=== PATIENT | male | born 1990 | race Hispanic/Latino ===

== ENCOUNTER 2024-07-12 10:37 | Emergency (ER) | payer OTHER ==
[2024-07-12 11:10] LABS: Absolute Lymphocytes (CBC) 1.3 K/uL (0.7-4.9); Absolute Monocytes 0.2 K/uL (0.1-1.3); Basophils % 0.8 % (0-1.3); Eosinophils % 0.8 % (0-4.4); Hematocrit 38.3 % (39.6-49.0); Hemoglobin 13.3 g/dL (13.6-17.9); Lymphocytes % 22.6 % (15.3-44.8); MCH 31.3 pg (27.0-35.0); MCHC 34.8 g/dL (32.0-36.0); Monocytes % 4.1 % (3.3-12.3); Neutrophils % 71.7 % (41.7-73.7); Nucleated Red Blood Cells % 0.1 % (0-0); Platelets 154 thou/uL (152-406); RBC Red Blood Cell Count 4.26 M/uL (4.33-5.43); Red Cell Distribution Width 13.7 % (12.1-15.2)
[2024-07-12 11:13] LABS: PT Prothrombin Time 11.1 SECONDS (10-13.0); PTT, Activated Partial Thromb 33.2 SECONDS (27.2-37.4); Protime INR 0.97
[2024-07-12 11:23] LABS: ALT/SGPT 30 U/L (16-61); AST/SGOT 17 U/L (15-37); Albumin 3.6 g/dL (3.4-5.0); Albumin/Globulin Ratio 1.2 (1.1-1.8); Alkaline Phosphatase 58 U/L (45-117); BUN Blood Urea Nitrogen 18 mg/dL (7-18); Bicarbonate 26 mEq/L (21-32); Bilirubin Direct < 0.2 mg/dL (0-0.2); Bilirubin Indirect, Calculated 0.3 mg/dL (0.2-0.8); Bilirubin Total 0.5 mg/dL (0.2-1.0); Glomerular Filtration Rate 116 ml/min (=/>90); Glucose Level 97 mg/dL (74-106); Protein, Total 6.6 g/dL (6.4-8.2); Sodium Level 140 mEq/L (136-145)
[2024-07-12 11:45] LABS: Barbiturates NEGATIVE (NEGATIVE); Benzodiazepines NEGATIVE (NEGATIVE); Cocaine NEGATIVE (NEGATIVE); METHAMPHETAM NEGATIVE (NEGATIVE); Methadone NEGATIVE (NEGATIVE); Opiates NEGATIVE (NEGATIVE); Phencyclidine NEGATIVE (NEGATIVE); THC Cannibis NEGATIVE (NEGATIVE)
--- NOTE | 2024-07-12 12:20 | EDPHYS ---
Physician Documentation [facility] Name: Jose Travis Jr Age: 34 yrs Sex: Male : 1990 Arrival Date: 07/12/2024 Time: 10:37 Bed 2 Private MD: ED Physician Rodolfo Boyer HPI: 07/12 11:20 This 34 yrs old Male presents to ER via EMS with complaints of Drug Abuse. ms3 11:20 34-year-old male with no past medical history presents to the emergency department via [address] [facility] for unknown substance ingestion. Patient had 18-gauge IV placed by the [facility] and 500 mL normal saline bolus was administered. EMS notes patient to be in sinus rhythm with blood glucose level of 84. 2 mg of Narcan was administered without response. Patient states he was talking to his cellmate when something flew into his mouth causing him to have loss of consciousness. He denies pain. He states he is drowsy.. Historical: - Allergies: 10:44 No Known Allergies; db - PMHx: 10:44 None; db - Immunization history:: Adult Immunizations unknown. - Infectious Disease History:: Denies. - Social history:: Smoking status: unknown. ROS: 11:20 Cardiovascular: Negative for chest pain, and palpitations. Respiratory: Negative for ms3 shortness of breath, cough, wheezing, and pleuritic chest pain, Abdomen/GI: Negative for abdominal pain, nausea, vomiting, diarrhea, and constipation, MS/Extremity: Negative for injury and deformity, Skin: Negative for injury, rash, and discoloration, 11:20 Constitutional: Positive for fatigue, Exam: 11:20 Constitutional: This is a well developed, well nourished patient who is awake, alert, ms3 and in no acute distress. Cardiovascular: Regular rate and rhythm with a normal S1 and S2. No gallops, murmurs, or rubs. Normal PMI, no JVD. No pulse deficits. Respiratory: Lungs have equal breath sounds bilaterally, clear to auscultation and percussion. No rales, rhonchi or wheezes noted. No increased work of breathing, no retractions or nasal flaring. Abdomen/GI: Soft, non-tender, with normal bowel sounds. No distension or tympany. No guarding or rebound. No evidence of tenderness throughout. Skin: Warm, dry with normal turgor. Normal color with no rashes, no lesions, and no evidence of cellulitis. MS/ Extremity: Pulses equal, no cyanosis. Neurovascular intact. Full, normal range of motion. 11:20 Neuro: Orientation: is normal, to person, place, time \T\ situation. Mentation: is ms3 normal, Memory: is normal, Cranial nerves: CN I not tested, CN II- XII are normal as tested, Motor: is normal, Sensation: is normal, no obvious gross deficits, 11:23 ECG was reviewed by the Attending Physician. ms3 Vital Signs: 10:33 BP 120 / 80; Pulse 66; Resp 16; Temp 98.1(O); Pulse Ox 100% ; Weight 68.95 kg; db 11:00 BP 118 / 80; Pulse 66; Resp 16; Pulse Ox 100% on R/A; db 11:30 BP 139 / 91; Pulse 69; Resp 16; Pulse Ox 100% ; db 12:11 BP 119 / 80; Pulse 70; Resp 18 S; Pulse Ox 99% on R/A; kc6 Hamilton Coma Score: 10:33 Eye Response: to pain(2). Motor Response: obeys commands(6). Verbal Response: db confused(4). Total: 12. 10:53 Eye Response: spontaneous(4). Motor Response: obeys commands(6). Verbal Response: db oriented(5). Total: 15. MDM: 10:39 Medical Screening Exam initiated ms3 11:20 Differential diagnosis: Drug ingestion versus malingering versus intracranial ms3 arrhythmia versus electrolyte abnormality. 12:20 Data reviewed: vital signs, nurses notes, lab test result(s), EKG, and as a result, I ms3 will discharge patient. Independent interpretation of the following test(s) in the Emergency Department EKG: See my EKG interpretation above. Historians other than the Patient: EMS: Terry Silva. Counseling: I had a detailed discussion with the patient and/or guardian regarding the historical points, exam findings, and any diagnostic results supporting the discharge/admit diagnosis, lab results, the need for outpatient follow up, to return to the emergency department if symptoms worsen or persist or if there are any questions or concerns that arise at home. Special discussion: I discussed with the patient/guardian in detail that at this point there is no indication for admission to the hospital. It is understood, however, that if the symptoms persist or worsen the patient needs to return immediately for re-evaluation. ED course: Labs reassuring; however, do reveal a mild anemia. Patient's EKG with sinus bradycardia. Patient is currently alert and oriented x 4, in no apparent distress, nontoxic-appearing, speaking full sentences, neurologically intact. [facility] to [facility]. Follow-up with pen[facility]entiary physician in 2 to 3 days. All questions were answered. Return precautions discussed include worsening symptoms, or any other concerns.. 07/12 10:39 Order name: Acetaminophen; Complete Time: 12:17 ms3 07/12 10:39 Order name: BMP; Complete Time: 12: ms3 07/12 10:39 Order name: CBC with Diff; Complete Time: 12:17 ms3 07/12 10:39 Order name: Ethanol; Complete Time: 12:17 ms3 07/12 10:39 Order name: Hepatic Function; Complete Time: 12:17 ms3 07/12 10:39 Order name: Protime (+inr); Complete Time: 12:17 ms3 07/12 10:39 Order name: Ptt, Activated; Complete Time: 12:17 ms3 07/12 10:39 Order name: Salicylate; Complete Time: 12:17 ms3 07/12 10:39 Order name: Urine Drug Screen; Complete Time: 12:17 ms3 07/12 10:39 Order name: EKG - Nurse/Tech; Complete Time: 11:04 ms3 07/12 10:39 Order name: IV Saline Lock; Complete Time: 11: ms3 07/12 10:39 Order name: Labs collected and sent; Complete Time: 11: ms3 07/12 10:39 Order name: O2 Per Protocol; Complete Time: 11: ms3 07/12 10:39 Order name: O2 Sat Monitoring; Complete Time: 11: ms3 07/12 10:39 Order name: Suicide Screening (Cade); Complete Time: 11:04 ms3 EC:23 Rate is 57 beats/min. Rhythm is regular. QRS [place] is Normal. [place] interval is normal. QRS ms3 interval is normal. Clinical impression: Sinus bradycardia. Interpreted by me. Reviewed by me. Administered Medications: No medications were administered Disposition Summary: 07/12/24 12:19 Discharge Ordered Notes: Location: Home ms3 Condition: Stable ms3 Diagnosis - Altered mental status, unspecified - resolved ms3 - Anemia, unspecified ms3 Followup: ms3 - With: Private Physician - When: 2 - 3 days - Reason: Recheck today's complaints Discharge Instructions: - Discharge Summary Sheet ms3 - Anemia ms3 - Accidental Drug Poisoning, Adult ms3 Forms: - Medication Reconciliation Form ms3 - Antibiotic Education ms3 - Prescription Opioid Use ms3 - Patient Portal Instructions ms3 - Leadership Thank You Letter ms3 Signatures: Dispatcher [employer] EDMS Rodolfo Boyer DO DO ms3 Carol Magana RN RN db Corrections: (The following items were deleted from the chart) 10:40 10:40 ACETAMINOPHEN+C.LAB.BRZ ordered. EDMS EDMS 10:40 10:40 BASIC METABOLIC PANEL+C.LAB.BRZ ordered. EDMS EDMS 10:40 10:40 CBC+H.LAB.BRZ ordered. EDMS EDMS 10:40 10:40 ETHANOL+C.LAB.BRZ ordered. EDMS EDMS 10:40 10:40 HEPATIC FUNCTION+C.LAB.BRZ ordered. EDMS EDMS 10:40 10:40 PROTIME (+INR)+COAG.LAB.BRZ ordered. EDMS EDMS 10:40 10:40 PTT, ACTIVATED+COAG.LAB.BRZ ordered. EDMS EDMS 10:40 10:40 SALICYLATE+C.LAB.BRZ ordered. EDMS EDMS 10:40 10:40 URINE DRUG SCREEN+UC.LAB.BRZ ordered. EDMS EDMS 10:45 10:44 Social history: Smoking status: Patient denies any tobacco usage or history of. dbdb 11:22 11:20 Constitutional: This is a well developed, well nourished patient who is awake, ms3 alert, and in no acute distress. Cardiovascular: Regular rate and rhythm with a normal S1 and S2. No gallops, murmurs, or rubs. Normal PMI, no JVD. No pulse deficits. Respiratory: Lungs have equal breath sounds bilaterally, clear to auscultation and percussion. No rales, rhonchi or wheezes noted. No increased work of breathing, no retractions or nasal flaring. Abdomen/GI: Soft, non-tender, with normal bowel sounds. No distension or tympany. No guarding or rebound. No evidence of tenderness throughout. Skin: Warm, dry with normal turgor. Normal color with no rashes, no lesions, and no evidence of cellulitis. MS/ Extremity: Pulses equal, no cyanosis. Neurovascular intact. Full, normal range of motion. Neuro: Awake and alert, GCS 15, oriented to person, place, time, and situation. Cranial nerves II-XII grossly intact. Motor strength 5/5 in all extremities. Sensory grossly intact. Cerebellar exam normal. Normal gait. ms3
--- NOTE | 2024-07-12 12:20 | ER ---
Nurse's Notes [facility] Name: Jose Travis Jr Age: 34 yrs Sex: Male : 1990 Arrival Date: 07/12/2024 Time: 10:37 Bed 2 Private MD: Diagnosis: Altered mental status, unspecified-resolved;Anemia, unspecified Presentation: 07/12 10:33 Chief complaint: EMS states: PATIENT FOUND DOWN, UNRESPONSIVE IN CELL TOOK UNKNOWN db SUBSTANCE FROM [facility] DETENTION. GIVEN NARCAN 2 MG, ON SCENE. FOUND APPROXIMATELY 0930. BGL 84. PT TALKING UPON ARRIVAL REPORTS SOMETHING "FLYING IN MY MOUTH" AND THEN STARTED GAGGING AND THAT'S ALL HE REMEMBERS. Coronavirus screen: Client denies travel out of the [place] in the last 14 days. At this time, the client does not indicate any symptoms associated with coronavirus-19. Ebola Screen: Patient negative for fever greater than or equal to 101.5 degrees Fahrenheit, and additional compatible Ebola Virus Disease symptoms Patient denies exposure to infectious person. Patient denies travel to an Ebola-affected area in the 21 days before illness onset. No symptoms or risks identified at this time. Initial Sepsis Screen: Does the patient meet any 2 criteria? No. Patient's initial sepsis screen is negative. Does the patient have a suspected source of infection? No. Patient's initial sepsis screen is negative. Risk Assessment: Do you want to hurt yourself or someone else? Patient reports no desire to harm self or others. Onset of symptoms was July 12, 2024 at 09:30. Care prior to arrival: Medication(s) given: NARCAN 2 MG Glucose check: 84. 10:33 Method Of Arrival: EMS: [facility] db 10:33 Acuity: MONET 2 db Triage Assessment: 10:44 General: Appears in no apparent distress. comfortable, Behavior is cooperative, drowsy. db Pain: Denies pain. Neuro: Level of Consciousness is obeys commands, Oriented to person, place, situation. Respiratory: Airway is patent Respiratory effort is even, unlabored, Respiratory pattern is regular, symmetrical. Historical: - Allergies: 10:44 No Known Allergies; db - PMHx: 10:44 None; db - Immunization history:: Adult Immunizations unknown. - Infectious Disease History:: Denies. - Social history:: Smoking status: unknown. Screenin:46 [facility] ED Fall Risk Assessment (Adult) History of falling in the last 3 months, db including since admission No falls in past 3 months (0 pts) Confusion or Disorientation No (0 pts) Intoxicated or Sedated No (0 pts) Impaired Gait No (0 pts) Mobility Assist Device Used No (0 pt) Altered Elimination No (0 pt) Score/Fall Risk Level 0 - 2 = Low Risk Oriented to surroundings, Maintained a safe environment. Abuse screen: Denies threats or abuse. Denies injuries from another. Nutritional screening: No deficits noted. Tuberculosis screening: No symptoms or risk factors identified. Assessment: 10:46 Reassessment: SEE TRIAGE FOR INITIAL ASSESSMENT. db 11:46 Reassessment: Patient appears in no apparent distress at this time. Patient and/or db family updated on plan of care and expected duration. Pain level reassessed. Patient is alert, oriented x 3, equal unlabored respirations, skin warm/dry/pink. PATIENT SITTING UP TALKING WITH GUARDS. 12:10 Reassessment: Patient appears in no apparent distress at this time. No changes from kc6 previously documented assessment. Patient and/or family updated on plan of care and expected duration. Pain level reassessed. Patient is alert, oriented x 3, equal unlabored respirations, skin warm/dry/pink. 12:28 Reassessment: Patient appears in no apparent distress at this time. Patient and/or db family updated on plan of care and expected duration. Pain level reassessed. Patient is alert, oriented x 3, equal unlabored respirations, skin warm/dry/pink. Reassessment: Patient states feeling better. Patient states symptoms have improved. General: Appears in no apparent distress. comfortable, Behavior is calm, cooperative. Neuro: Level of Consciousness is awake, alert, obeys commands, Oriented to person, place, time, situation. Respiratory: Airway is patent Respiratory effort is even, unlabored, Respiratory pattern is regular, symmetrical. Vital Signs: 10:33 BP 120 / 80; Pulse 66; Resp 16; Temp 98.1(O); Pulse Ox 100% ; Weight 68.95 kg; db 11:00 BP 118 / 80; Pulse 66; Resp 16; Pulse Ox 100% on R/A; db 11:30 BP 139 / 91; Pulse 69; Resp 16; Pulse Ox 100% ; db 12:11 BP 119 / 80; Pulse 70; Resp 18 S; Pulse Ox 99% on R/A; kc6 Hamilton Coma Score: 10:33 Eye Response: to pain(2). Motor Response: obeys commands(6). Verbal Response: db confused(4). Total: 12. 10:53 Eye Response: spontaneous(4). Motor Response: obeys commands(6). Verbal Response: db oriented(5). Total: 15. ED Course: 10:38 Patient arrived in ED. cm10 10:38 Rodolfo Boyer DO is Attending Physician. ms3 10:40 Carol Magana, RN is Primary Nurse. db 10:44 Triage completed. db 10:44 Arm band placed on Patient placed in an exam room. db 10:53 Initial lab(s) drawn, by me, sent to lab. EKG done, by ED staff, reviewed by Rodolfo Boyer DO. Inserted saline lock: 20 gauge in right upper arm, using aseptic technique. Blood collected. Flushed with 10 mL NS. Patient maintains SpO2 saturation greater than 95% on room air. 11:25 Urine collected: clean catch specimen, clear. db 12:28 Patient has correct armband on for positive identification. Bed in low position. Call db light in reach. Side rails up X2. Provided Education on: DISCHARGE. Client placed on continuous cardiac and pulse oximetry monitoring. NIBP monitoring applied. internal revenue service agent on. Pulse ox on. NIBP on. Pillow given. 12:28 No provider procedures requiring assistance completed. IV discontinued, intact, db bleeding controlled, No redness/swelling at site. Administered Medications: No medications were administered Medication: 12:28 VIS not applicable for this client. db Outcome: 12:19 Discharge ordered by . ms3 12:28 Discharged to Law Enforcement db 12:28 Condition: stable 12:28 Discharge instructions given to patient, police, Instructed on discharge instructions, follow up and referral plans. 12:30 Patient left the ED. db Signatures: Rodolfo Boyer DO DO ms3 Ileana Matta, RN RN kc6 Carol Magana, RN RN db Melanie Mendiola RN RN cm10 Corrections: (The following items were deleted from the chart) 10:45 10:44 Social history: Smoking status: Patient denies any tobacco usage or history of. dbdb
[2024-07-12 18:32] VITALS: BP 119/80; O2SAT 99
== END 2024-07-12 12:30 | disposition home or self-care (01) ==
LOC: ER 10:37
DX: D64.9 Anemia, unspecified (principal)
CPT/HCPCS: 36415; 80048; 80076; 80143; 80179; 80307; 82077; 85025; 85610; 85730; 93005